=== PATIENT | female | born 2000 | race Caucasian/White ===

== ENCOUNTER → 2019-05-11 | Outpatient (REF) | payer OTHER | LOC: M SFHCLERA 16:36 | PROVIDERS: ATTEND Physician Assistant | DX: R39.9 Unspecified symptoms and signs involving the genitourinary system (principal) | CPT/HCPCS: 81002; 87088; 87186; G0463 ==

== ENCOUNTER 2019-05-28 14:32 | Emergency (ER) | payer OTHER ==
[~2019-05-28] VITALS: Ht 154.9 cm; Wt 46.4 kg
[2019-05-28] MEDS ORDERED: PREN1CHW PO (14:35)
[2019-05-28 15:37] LABS: BASO % 0.4 % (0.0-1.0); EOS % 0.3 % (0.0-3.0); HEMATOCRIT 34.5 % (36.0-47.0); HEMOGLOBIN 11.7 g/dl (12.0-15.5); LYMPH # 1.5 10^3/uL (1.5-5.0); LYMPH % 14.1 % (24.0-44.0); MEAN CORPUSCULAR HEMOGLOBIN 30.2 pg (27.0-33.0); MEAN CORPUSCULAR HGB CONC 33.9 g/dl (32.0-36.5); MEAN CORPUSCULAR VOLUME 88.9 fl (80.0-96.0); MONO # 0.5 10^3/uL (0.0-0.8); NEUTROPHILS # 8.3 10^3/uL (1.5-8.5); NEUTROPHILS % 79.8 % (36.0-66.0); PLATELET COUNT, AUTOMATED 303 10^3/uL (150-450); RED BLOOD COUNT 3.88 10^6/uL (4.00-5.40); WHITE BLOOD COUNT 10.4 10^3/uL (4.0-10.0)
--- NOTE | 2019-05-28 16:32 | REP ---
RENAL ULTRASOUND: Real-time sonographic evaluation of the kidneys performed. The kidneys are normal in size and echotexture, the right kidney measuring 11.7 x 3.5 x 3.5 cm and left kidney 10.9 x 4.3 x 3.5 cm. There is no hydronephrosis or nephrolithiasis bilaterally. Ureteral jets are not seen in the urinary bladder with Doppler color evaluation. The patient is and the heart rate is noted to be 168 beats per minute. IMPRESSION: No evidence of hydronephrosis or nephrolithiasis. Electronically Signed by Raz Dean MD 05/29/2019 06:09 P
[2019-05-28] MEDS ORDERED: KEFL500C17 PO (16:56)
[2019-05-28 17:02] VITALS: BP 111/65
== END 2019-05-28 17:03 | disposition home or self-care (01) ==
LOC: M ED 14:32
DX: O23.42 Unspecified infection of urinary tract in pregnancy, second trimester (principal); Z3A.15 15 weeks gestation of pregnancy; Z79.899 Other long term (current) drug therapy

== ENCOUNTER 2019-06-14 22:46 | Emergency (ER) | payer OTHER ==
[~2019-06-14] VITALS: Ht 154.9 cm; Wt 47.3 kg
[~2019-06-14 22:46] MED LIST: KEFL500C17 PO; PREN1CHW PO
[2019-06-14 23:44] LABS: BASO % 0.2 % (0.0-1.0); EOS # 0.1 10^3/uL (0.0-0.5); EOS % 1.4 % (0.0-3.0); HEMATOCRIT 36.8 % (36.0-47.0); HEMOGLOBIN 12.5 g/dl (12.0-15.5); MEAN CORPUSCULAR HEMOGLOBIN 30.5 pg (27.0-33.0); MEAN CORPUSCULAR VOLUME 89.8 fl (80.0-96.0); MONO # 0.5 10^3/uL (0.0-0.8); MONO % 6.5 % (0.0-5.0); NEUTROPHILS # 6.4 10^3/uL (1.5-8.5); NEUTROPHILS % 79.7 % (36.0-66.0); PLATELET COUNT, AUTOMATED 312 10^3/uL (150-450)
[2019-06-14 23:48] LABS: APPEARANCE, URINE HAZY (CLEAR); BACTERIA, URINE AUTO 1+ (NEGATIVE); BILIRUBIN, URINE AUTO NEGATIVE (NEGATIVE); BLOOD, URINE BLOOD NEGATIVE (NEGATIVE); COLOR, URINE YELLOW (YELLOW); GLUCOSE, URINE (UA) AUTO NEGATIVE (NEGATIVE); KETONE, URINE AUTO TRACE mg/dL (NEGATIVE); LEUKOCYTE ESTERASE, URINE AUTO NEGATIVE (NEGATIVE); MUCUS, URINE SMALL (NEGATIVE); NITRITE, URINE AUTO NEGATIVE (NEGATIVE); PROTEIN, URINE AUTO 1+ mg/dL (NEGATIVE); RBC, URINE AUTO 3 /HPF (0-3); SPECIFIC GRAVITY URINE AUTO 1.031 (1.002-1.035); SQUAMOUS EPITHELIAL CELL UR AU 4 /HPF (0-6); UROBILINOGEN, URINE AUTO 0.2 mg/dL (0.0-2.0); WBC, URINE AUTO 2 /HPF (0-3)
[2019-06-15 00:09] LABS: ALBUMIN 3.6 GM/DL (3.2-5.2); ALT/SGPT 19 U/L (12-78); BILIRUBIN,DIRECT < 0.1 MG/DL (0.0-0.2); BILIRUBIN,TOTAL 0.2 MG/DL (0.2-1.0); BLOOD UREA NITROGEN 10 MG/DL (7-18); CALCIUM LEVEL 8.7 MG/DL (8.5-10.1); CARBON DIOXIDE LEVEL 27 MEQ/L (21-32); CHLORIDE LEVEL 104 MEQ/L (98-107); CREATININE FOR GFR 0.49 MG/DL (0.55-1.30); GLUCOSE, FASTING 68 MG/DL (70-100); LIPASE 179 U/L (73-393); POTASSIUM SERUM 3.3 MEQ/L (3.5-5.1); SODIUM LEVEL 139 MEQ/L (136-145); TOTAL PROTEIN 7.7 GM/DL (6.4-8.2)
[2019-06-15 00:21] VITALS: BP 110/62
[2019-06-16] MEDS ORDERED: TUMS500C PO (20:51)
[2019-06-16] MEDS ORDERED: REGL10TA6 PO (23:03)
== END 2019-06-15 00:24 | disposition home or self-care (01) ==
LOC: M ED 22:46
DX: O99.89 Other specified diseases and conditions complicating pregnancy, childbirth and the puerperium (principal); Z3A.18 18 weeks gestation of pregnancy; Z79.899 Other long term (current) drug therapy

== ENCOUNTER 2019-06-16 20:47 | Emergency (ER) | payer OTHER ==
[~2019-06-16] VITALS: Ht 154.9 cm; Wt 47.3 kg
[2019-06-16] MEDS ORDERED: TUMS500C PO (20:51)
[2019-06-16] MEDS ORDERED: NS 1,000 ML IV ONE (21:30)
[2019-06-16 21:57] LABS: BASO % 0.3 % (0.0-1.0); EOS # 0.2 10^3/uL (0.0-0.5); EOS % 2.7 % (0.0-3.0); HEMATOCRIT 33.5 % (36.0-47.0); HEMOGLOBIN 11.3 g/dl (12.0-15.5); LYMPH # 1.7 10^3/uL (1.5-5.0); LYMPH % 27.7 % (24.0-44.0); MEAN CORPUSCULAR HGB CONC 33.7 g/dl (32.0-36.5); MEAN CORPUSCULAR VOLUME 88.9 fl (80.0-96.0); MONO # 0.6 10^3/uL (0.0-0.8); MONO % 9.9 % (0.0-5.0); NEUTROPHILS # 3.5 10^3/uL (1.5-8.5); NEUTROPHILS % 59.1 % (36.0-66.0); PLATELET COUNT, AUTOMATED 303 10^3/uL (150-450); RED BLOOD COUNT 3.77 10^6/uL (4.00-5.40)
[2019-06-16 22:09] LABS: AMORPHOUS SEDIMENT SMALL (NEGATIVE); APPEARANCE, URINE HAZY (CLEAR); BACTERIA, URINE AUTO NEGATIVE (NEGATIVE); BILIRUBIN, URINE AUTO NEGATIVE (NEGATIVE); BLOOD, URINE BLOOD NEGATIVE (NEGATIVE); COLOR, URINE YELLOW (YELLOW); GLUCOSE, URINE (UA) AUTO NEGATIVE (NEGATIVE); KETONE, URINE AUTO TRACE mg/dL (NEGATIVE); LEUKOCYTE ESTERASE, URINE AUTO NEGATIVE (NEGATIVE); MUCUS, URINE SMALL (NEGATIVE); NITRITE, URINE AUTO NEGATIVE (NEGATIVE); PROTEIN, URINE AUTO NEGATIVE (NEGATIVE); RBC, URINE AUTO 3 /HPF (0-3); SPECIFIC GRAVITY URINE AUTO 1.027 (1.002-1.035); SQUAMOUS EPITHELIAL CELL UR AU 1 /HPF (0-6); UROBILINOGEN, URINE AUTO 0.2 mg/dL (0.0-2.0); WBC, URINE AUTO 1 /HPF (0-3)
[2019-06-16 22:20] LABS: ALBUMIN 3.3 GM/DL (3.2-5.2); ALT/SGPT 27 U/L (12-78); BILIRUBIN,DIRECT < 0.1 MG/DL (0.0-0.2); BILIRUBIN,TOTAL 0.2 MG/DL (0.2-1.0); BLOOD UREA NITROGEN 10 MG/DL (7-18); CARBON DIOXIDE LEVEL 28 MEQ/L (21-32); CHLORIDE LEVEL 105 MEQ/L (98-107); CREATININE FOR GFR 0.54 MG/DL (0.55-1.30); GLUCOSE, FASTING 75 MG/DL (70-100); POTASSIUM SERUM 3.4 MEQ/L (3.5-5.1); SODIUM LEVEL 140 MEQ/L (136-145)
[2019-06-16] MEDS ORDERED: REGL10TA6 PO (23:03)
[2019-06-16 23:15] VITALS: BP 105/60
[2019-06-16] MEDS ORDERED: METOCLOPRAMIDE INJ 10MG/2ML VIAL (J2765) IV ONE (23:15)
== END 2019-06-16 23:18 | disposition home or self-care (01) ==
LOC: M ED 20:47
DX: O21.9 Vomiting of pregnancy, unspecified (principal); Z3A.19 19 weeks gestation of pregnancy; Z79.899 Other long term (current) drug therapy
CPT/HCPCS: 80048; 80076; 81001; 85025; 87086; 96361; 96374; 99284; J2765

== ENCOUNTER 2019-09-12 23:44 | Emergency (ER) | payer OTHER ==
[~2019-09-12] VITALS: Ht 154.9 cm; Wt 56.9 kg
[~2019-09-12 23:44] MED LIST changes: +REGL10TA6 PO; +TUMS500C PO
[2019-09-12 23:45] VITALS: BP 118/68
[2019-09-13 00:48] LABS: INFLUENZA A AMPLIFICATION NEGATIVE (NEGATIVE); INFLUENZA B AMPLIFICATION NEGATIVE (NEGATIVE)
== END 2019-09-13 02:55 | disposition left against medical advice (07) ==
LOC: M ED 23:44
DX: Z53.21 Procedure and treatment not carried out due to patient leaving prior to being seen by health care provider (principal)

== ENCOUNTER 2019-11-17 12:43 | Outpatient (CLI) | payer OTHER ==
[~2019-11-17] VITALS: Ht 154.9 cm; Wt 62.2 kg
[2019-11-17 12:56] VITALS: BP 129/81
[2019-11-17] MEDS ORDERED: FACE (13:06)
--- NOTE | 2019-11-17 13:37 | IPNPDOC ---
Text Note Date of Service The patient was seen on 11/17/19. NOTE Patient is at 40.6wks c/o ctx x3hrs. No LOF, or vaginal bleeding. Good movement. No blurred vision or headache. PE VS WNL NAD, appears comfortable ABD nonetender, gravid SVE //BBOW BLE no edema and nontender FHT category 1, 140s, reactive, no decels, ctx q5min A/P: Fetus reassuring. Patient in early labor not active labor. This was discussed with patient and explained for her to come back when contractions get stronger. She was given SROM precautions and kick counts. VS,Fishbone, I+O VS, Fishbone, I+O Vital Signs Date Time Temp Pulse Resp B/P (MAP) Pulse Ox O2 Delivery O2 Flow Rate FiO2 11/17/19 12:56 86 129/81 (97) 11/17/19 12:55 98.2 20 Norma Mosley MD Nov 17, 2019 13:37
== END 2019-11-17 13:20 | disposition home or self-care (01) ==
LOC: M LDO 12:43
PROVIDERS: ATTEND Obstetrics & Gynecology
DX: O60.03 Preterm labor without delivery, third trimester (principal); Z3A.40 40 weeks gestation of pregnancy
CPT/HCPCS: 59025; G0378; G0463

== ENCOUNTER 2019-11-17 21:33 | Inpatient (IN) | payer OTHER ==
[~2019-11-17] VITALS: Ht 154.9 cm; Wt 62.2 kg
[2019-11-17] VITALS (10 sets, daily range): BP systolic 121–184; BP diastolic 73–98
[~2019-11-17 21:33] MED LIST changes: +FACE
[2019-11-17] MEDS ORDERED: LACTATED RINGER'S 1000 ML IV STA (22:16)
[2019-11-17] MEDS ORDERED: PENICILLIN G POTASSIUM IV 5 MU in D5W MINI-BAG PLUS 100 ML IV STA (22:16)
[2019-11-17] MEDS ORDERED: LR 1,000 ML IV SCH (22:16)
[2019-11-17] MEDS ORDERED: PROMETHAZINE INJ 25 MG/ML VIAL (J2550) IV PRN (22:30)
[2019-11-17] MEDS ORDERED: CALCIUM CARBONATE 500 MG CHEW U/D PO PRN (22:30)
[2019-11-17] MEDS ORDERED: MOM 30ML SUSPENSION UDC PO PRN (22:30)
[2019-11-17] MEDS ORDERED: SIMETHICONE 80 MG CHEW TAB PO PRN (22:30)
[2019-11-17] MEDS ORDERED: BUTORPHANOL 2 MG/ML INJ (J0595) IV PRN (22:30)
[2019-11-17] MEDS ORDERED: diphenhydrAMINE 25 MG CAP PO PRN (22:30)
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
[2019-11-17 22:33] LABS: BASO # 0.1 10^3/uL (0.0-0.2); BASO % 0.5 % (0.0-1.0); EOS # 0.1 10^3/uL (0.0-0.5); EOS % 0.7 % (0.0-3.0); HEMATOCRIT 35.9 % (36.0-47.0); HEMOGLOBIN 12.2 g/dl (12.0-15.5); LYMPH # 1.7 10^3/uL (1.5-5.0); LYMPH % 17.1 % (24.0-44.0); MEAN CORPUSCULAR VOLUME 88.2 fl (80.0-96.0); MONO # 0.8 10^3/uL (0.0-0.8); MONO % 8.1 % (0.0-5.0); NEUTROPHILS # 7.3 10^3/uL (1.5-8.5); NEUTROPHILS % 73.1 % (36.0-66.0); PLATELET COUNT, AUTOMATED 266 10^3/uL (150-450); RED BLOOD COUNT 4.07 10^6/uL (4.00-5.40); WHITE BLOOD COUNT 9.9 10^3/uL (4.0-10.0)
[2019-11-17] MEDS ORDERED: FENTANYL 2MCG/ML ROPIVACAINE 0.2% IN 0.9% NACL 100ML IVBAG As Ordered ONE (23:11)
[2019-11-18] VITALS (64 sets, daily range): BP systolic 115–182; BP diastolic 59–105
[2019-11-18] MEDS ORDERED: PENICILLIN G POTASSIUM IV 2.5 MU in IV 1 EA IV SCH (03:00)
[2019-11-18] MEDS ORDERED: OXYTOCIN 30 UNITS IN 0.9% NaCl 500ML IV BAG (J2590) As Ordered ONE (05:02)
--- NOTE | 2019-11-18 05:07 | IPNPDOC ---
Text Note Date of Service The patient was seen on 11/18/19. NOTE Called for FHR in 70s for 5min. Upon arrival, patient laying with O2 and FHR 160s. Occurred after SROM and rapid head descent. Patient comfortable with epidural. SVE: anterior lip which dissolved to complete/+3 FHR: Cat 2, 160s, reactive to check with acceleration, 5min decel to 70s, ctx q5min A/P: Observe with oxygen and delay pushing to allow oxygenation maximizat ion. Then, we will inititiate pushing. Fetus has maximized passive descent. VS,Fishbone, I+O VS, Fishbone, I+O Laboratory Tests 11/17/19 22:27 Vital Signs Date Time Temp Pulse Resp B/P (MAP) Pulse Ox O2 Delivery O2 Flow Rate FiO2 11/18/19 00:30 98.7 63 17 11/18/19 00:27 119/77 (91) Norma Mosley MD Nov 18, 2019 05:07
[2019-11-18] MEDS ORDERED: OXYTOCIN DRIP 30 UNITS in IV 1 EA IV SCH (05:57)
[2019-11-18] MEDS ORDERED: MEASLES,MUMPS,RUBELLA VACCINE INJ (MMR-II) (90707) SC SCH (06:00)
[2019-11-18] MEDS ORDERED: DIBUCAINE 1% OINTMENT 30GM TOP PRN (06:00)
[2019-11-18] MEDS ORDERED: ONDANSETRON 4MG/2ML VIAL (J2405) IV PRN (06:00)
[2019-11-18] MEDS ORDERED: RHOGAM 300 MCG (1500 IU) INJ (J2790) IM SCH (06:00)
[2019-11-18] MEDS ORDERED: METHYLERGONOVINE MALEATE 0.2 MG TAB PO PRN (06:00)
--- NOTE | 2019-11-18 06:03 | DNPDOC ---
[facility], [place] Delivery Note Delivery Note DATE OF DELIVERY: 11/18/2019 PREDELIVERY DIAGNOSIS: 41-0/7 weeks' gestation and labor. POST DELIVERY DIAGNOSIS: Delivered. PROCEDURE: Spontaneous vaginal delivery. DIRECTOR OF STUDENT AFFAIRS: Dr. Mosley ANESTHESIA: Epidural. ESTIMATED BLOOD LOSS: 250 mL. FINDINGS: 6 pound 9 ounce 2970gm girl infant, Score 9/9, nuchal cord times 0. DELIVERY SUMMARY: Patient is a 19-year-old 1 now para 1 who was admitted to labor and delivery for active labor for 13hours. Patient SROM clear around 0432. Baby girl head was delivered without difficulty over intact perineum in JOSELINE position at 0535. The nose and mouth were bulb suctioned. No nuchal cord was noted. The shoulders were then delivered without difficulty. Infant was handed on mother's belly. Cord was then clamped x2 and cut after pulsation. Pitocin bolus was started. Perineum and vagina was inspected and found to have a left labial laceration. This was repaired with 3-0 chromic. The placenta was then delivered at 0550 spontaneously intact. Cord had a 3 vessel cord. EBL was 250mL. The vagina and perineum were reinspected and no further lacerations were found and hemostasis was good. Fundus was firm. Patient to lerated delivery well. Norma Mosley MD Nov 18, 2019 06:03
[2019-11-18 07:42] LABS: ALBUMIN 2.1 GM/DL (3.2-5.2); ALT/SGPT 11 U/L (12-78); BILIRUBIN,TOTAL 0.2 MG/DL (0.2-1.0); BLOOD UREA NITROGEN 10 MG/DL (7-18); CALCIUM LEVEL 8.3 MG/DL (8.5-10.1); CARBON DIOXIDE LEVEL 23 MEQ/L (21-32); CHLORIDE LEVEL 109 MEQ/L (98-107); CREATININE FOR GFR 0.59 MG/DL (0.55-1.30); GLUCOSE, FASTING 89 MG/DL (70-100); SODIUM LEVEL 139 MEQ/L (136-145); TOTAL PROTEIN 5.2 GM/DL (6.4-8.2); URIC ACID 6.1 MG/DL (2.6-6.0)
[2019-11-18] MEDS: ACETAMINOPHEN 500 MG TAB PO PRN ×3 (08:11→22:32)
[2019-11-18] MEDS ORDERED: hydrALAZINE INJ 20 MG/ML VIAL IV STA (08:13)
[2019-11-18 08:28] LABS: HEMATOCRIT 33.7 % (36.0-47.0); HEMOGLOBIN 11.5 g/dl (12.0-15.5); MEAN CORPUSCULAR HEMOGLOBIN 30.2 pg (27.0-33.0); MEAN CORPUSCULAR HGB CONC 34.1 g/dl (32.0-36.5); MEAN CORPUSCULAR VOLUME 88.5 fl (80.0-96.0); PLATELET COUNT, AUTOMATED 253 10^3/uL (150-450); RED BLOOD COUNT 3.81 10^6/uL (4.00-5.40)
[2019-11-18] MEDS ORDERED: MAG Sulf (OBGYN) 20GM/500ML 20,000 MG in IV 1 EA IV SCH (08:28)
--- NOTE | 2019-11-18 08:28 | IPNPDOC ---
Text Note Date of Service The patient was seen on 11/18/19. NOTE patient is a 19 yo s/p day of delivery. Called by nursing with concern for severe range BP. patient reports mild front RANGEL. denies change of vision/abdominal pain. vitals: 165/90-182/102, HR: 60's-80's, afebrile NAD, laying in bed cta s w/r/r s1s2 s m/g/c abd: nd, soft, nt le: no edema/erythema/tenderness, patella reflex: 3+, no clonus cmp: normal cbc: pending a/p patient s/p , BP in severe range for the last hour. treat with IV antihypertensive medication. discussed with patient regarding my concern for GHTN, pre-eclampsia with severe blood pressure. Start Mag to help decrease risk of eclamptic seizure. patient expresses understanding. DO Bryanna VS,Fishbone, I+O VS, Fishbone, I+O Laboratory Tests 11/17/19 22:27 11/18/19 07:04 Vital Signs Date Time Temp Pulse Resp B/P (MAP) Pulse Ox O2 Delivery O2 Flow Rate FiO2 11/18/19 08:18 173/98 11/18/19 07:28 69 11/18/19 07:18 99.2 18 I&O- Last 24 Hours up to 6 AM 11/18/19 06:00 Intake Total 1835 ml Output Total 600 ml Balance 1235 ml CARLOS EDUARDO CEE DO Nov 18, 2019 08:28
[2019-11-18] MEDS ORDERED: MAG Sulf (L&D) 4 GM/100 ML 4 GM in IV 1 EA IV ONE (08:30)
[2019-11-18] MEDS ORDERED: MAGNESIUM SULFATE 4% INJ 20GM/500ML (40MG/ML) (J3475) As Ordered ONE ×2 (08:34→20:08)
[2019-11-18] MEDS ORDERED: MAGNESIUM *L&D* 4 GM/100 ML BAG (40MG/ML) (J3475) As Ordered ONE (08:34)
[2019-11-18] MEDS: PRENATAL VITAMINS CHEWABLE TABLET PO SCH (12:24)
[2019-11-18] MEDS: DOCUSATE SODIUM 100 MG CAP PO SCH ×2 (12:24→22:32)
[2019-11-18] MEDS ORDERED: LABETALOL 100 MG TAB PO SCH (17:00)
[2019-11-19 02:03] VITALS: BP 122/60
[2019-11-19 06:31] VITALS: BP 123/74
[2019-11-19] MEDS: LABETALOL 100 MG TAB PO SCH ×2 (06:54→18:39)
[2019-11-19] MEDS: DOCUSATE SODIUM 100 MG CAP PO SCH ×2 (07:51→20:41)
[2019-11-19] MEDS: PRENATAL VITAMINS CHEWABLE TABLET PO SCH (07:51)
--- NOTE | 2019-11-19 07:53 | IPNPDOC ---
Text Note Date of Service The patient was seen on 11/19/19. NOTE Patient is a 19 yo s/p PPD #1, patient was on mag for 12hrs yesterday for severe range BP. She was started on labetalol 300mg BID. She has no complaints today. She is ambulating/urinating/tolerating po without problem. plans on using barrier contraceptive. attempting breast feeding. vitals: normal NAD, laying in bed cta s w/r/r s1s2 s m/g/c abd: nd, soft, nt, fundus: u-2 le: no edema/erythema/tenderness a/p patient ppd #1, pre-e with severe feature s/p 12 hrs on mag. BP currently controlled with labetalol 300mg BID. continue with routine ppc. counseled on contraceptive. recommend 12 months prior to next . disposition pending BP control. Le, DO VS,Fishbone, I+O VS, Fishbone, I+O Vital Signs Date Time Temp Pulse Resp B/P (MAP) Pulse Ox O2 Delivery O2 Flow Rate FiO2 11/19/19 06:31 98.3 80 16 123/74 (90) 97 Room Air I&O- Last 24 Hours up to 6 AM 11/19/19 06:00 Intake Total 1659 ml Output Total 3950 ml Balance -2291 ml CARLOS EDUARDO CEE DO Nov 19, 2019 07:44
[2019-11-19] MEDS: ACETAMINOPHEN 500 MG TAB PO PRN (08:02)
[2019-11-19 10:40] VITALS: BP 133/77
[2019-11-19 14:45] VITALS: BP 124/72
[2019-11-19 18:28] VITALS: BP 126/65
[2019-11-19 22:00] VITALS: BP 121/73
[2019-11-20 02:00] VITALS: BP 141/71
[2019-11-20] MEDS ORDERED: diphenhydrAMINE 25 MG CAP PO ONE (02:15)
--- NOTE | 2019-11-20 05:35 | IPNPDOC ---
Progress Note Date of Service: Nov 20, 2019 Day#: 2 Progress Note PPD 2 Aleksandr is a 19yo [id number] s/p on 11/18/2019, doing well on PPD #2. She received IV MgSO4 for 12hrs after delivery for severe range BP, and then was started on labetalol 300mg BID which has kept her normotensive to slightly mild range. She has no complaints today. She is ambulating without lightheadedness/dizziness. She is voiding spontaneously without issue. Lochia is minimal now. Tolerating regular diet without n/v. Plans on using barrier contr aceptive. Breast feeding without issue. No f/c/RANGEL/vision changes/SOB/CP. Vitals: normotensive to slightly mild range bp General: NAD, laying in bed Abdomen: nd, soft, nt, fundus at u-2cm and firm Extremities: no edema of BLE, no pain with palpation of calves Assessment: Aleksandr is a 19yo [id number] s/p on 11/18/2019, doing well on PPD #2. She received IV MgSO4 for 12hrs after delivery for severe range BP. BP currently controlled with labetalol 300mg BID. Exam benign. No s/sx of worsening pre-E. Meeting all milestones. Plan: -discharge home today -encourage breast feeding, hydration -bp check in clinic on Monday -patient instructed to sampler pickup labetalol Rx at [facility] after discharge -no heavy lifting, vaginal rest 6 weeks -return precautions discussed Dr. Carito Kaplan MD VS, I&O, 24H, Fishbone Vital Signs/I&O Vital Signs Date Time Temp Pulse Resp B/P (MAP) Pulse Ox O2 Delivery O2 Flow Rate FiO2 11/20/19 02:00 98.4 81 20 141/71 (94) 98 Room Air Carito Kaplan MD Nov 20, 2019 05:35
[2019-11-20] MEDS ORDERED: ACET-683 PO (05:38)
[2019-11-20] MEDS ORDERED: LABE10TAB PO (05:38)
--- NOTE | 2019-11-20 05:42 | DS.PDOC ---
Discharge Summary General Date of Admission Nov 17, 2019 at 21:59 Date of Discharge Nov 20, 2019 Discharge Summary PROCEDURES PERFORMED DURING STAY: spontaneous vaginal delivery ADMITTING DIAGNOSES: 1. Active labor at term DISCHARGE DIAGNOSES: 1. Active labor at term 2. severe pre-eclampsia treated with IV magnesium COMPLICATIONS/CHIEF COMPLAINT: Labor Check. HISTORY OF PRESENT ILLNESS/HOSPITAL COURSE: Aleksandr is a 19yo [id number] s/p on 11/18/2019, doing well on PPD #2. She received IV MgSO4 for 12hrs after delivery for severe range BP that occurred after delivery. BP currently controlled with labetalol 300mg BID. She had a benign course and at time of discharge she had no s/sx of worsening pre-E and was meeting all milestones. DISCHARGE MEDICATIONS: Please see below. ALLERGIES: Please see below. PHYSICAL EXAMINATION ON DISCHARGE: Vitals: normotensive to slightly mild range bp General: NAD, laying in bed Abdomen: nd, soft, nt, fundus at u-2cm and firm Extremities: no edema of BLE, no pain with palpation of calves LABORATORY DATA: Please see below. 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 Carito Kaplan MD Vital Signs/I&Os Vital Signs Date Time Temp Pulse Resp B/P (MAP) Pulse Ox O2 Delivery O2 Flow Rate FiO2 11/20/19 02:00 98.4 81 20 141/71 (94) 98 Room Air Discharge Medications Scheduled Calcium Carbonate (Tums) 200 Mg Tab.chew, 2 TAB PO QID for cough and congestion, (Reported) Labetalol HCl (Labetalol HCl) 100 Mg Tablet, 300 MG PO BID@0700,1900 Comb No.42/Folic Acid (Prena1 Chew Tablet) 1.4 Mg Tab.ch.bph, 1 TAB PO DAILY, (Reported) Scheduled PRN Acetaminophen (Acetaminophen) 500 Mg Tablet, 1,000 MG PO Q6HP PRN for fever or headache or pain Miscellaneous Medications [face cream] , (Reported) Allergies Coded Allergies: No Known Allergies (Unverified , 05/28/19) Carito Kaplan MD Nov 20, 2019 05:41
[2019-11-20 06:00] VITALS: BP 125/68
[2019-11-20 07:51] VITALS: BP 128/68
[2019-11-20] MEDS: LABETALOL 100 MG TAB PO SCH (07:51)
[2019-11-20] MEDS: DOCUSATE SODIUM 100 MG CAP PO SCH (09:38)
[2019-11-20] MEDS: PRENATAL VITAMINS CHEWABLE TABLET PO SCH (09:38)
[2019-11-20] MEDS: ACETAMINOPHEN 500 MG TAB PO PRN (09:39)
[2019-11-20 09:50] VITALS: BP 125/72
== END 2019-11-20 13:35 | disposition home or self-care (01) | DRG 807 ==
LOC: M LDO 21:33 → M LDI 21:59 → M OBS 11-18 23:05
PROVIDERS: ADMIT Obstetrics & Gynecology; ATTEND Obstetrics & Gynecology
PROC: 10E0XZZ Delivery of Products of Conception, External Approach (ICD-10-PCS; principal; 2019-11-18)
PROC: 0HQ9XZZ Repair Perineum Skin, External Approach (ICD-10-PCS; 2019-11-18)
DX: O48.0 Post-term pregnancy (principal); Z37.0 Single live birth; Z3A.40 40 weeks gestation of pregnancy; O99.824 Streptococcus B carrier state complicating childbirth; O70.0 First degree perineal laceration during delivery; O14.15 Severe pre-eclampsia, complicating the puerperium